=== PATIENT | male | born 1955 | race Caucasian/White ===

== ENCOUNTER 2016-12-09 06:09 | Day surgery (SDC) | payer OTHER ==
[~2016-12-09] VITALS: Ht 177.8 cm; Wt 122.0 kg
[~2016-12-09 06:09] MED LIST: AMLO-147 PO; INSULIN ASPART; LANT3I SC; LISI20TA11 PO
[2016-12-09 07:07] VITALS: Ht 177.8 cm; Wt 122.0 kg
[2016-12-09] MEDS ORDERED: HIV MED (07:21)
[2016-12-09] MEDS ORDERED: HYDR12.58 PO (07:21)
[2016-12-09] MEDS ORDERED: ATOR40TA68 PO (07:21)
[2016-12-09] MEDS ORDERED: PROPOFOL 20 ML ONE ×2 (07:40→08:23)
[2016-12-09 07:45] VITALS: BP 148/66; PULSE 62; RESP 14
[2016-12-09 08:55] VITALS: BP 145/54; PULSE 52; RESP 18
--- NOTE | 2016-12-09 09:06 | GILP ---
DATE OF PROCEDURE: NAME OF PROCEDURE: Colonoscopy. 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 POSTOPERATIVE DIAGNOSES: 1. Colonoscopy all the way to the cecum. 2. Internal hemorrhoids. 3. No rectal lesion was identified. INDICATION FOR THE PROCEDURE: Mr. Vikram Leonard is a 61-year-old male patient who had a colonoscopy and he was noted to have had rectal polyp. Biopsy revealed HPV cytopathic effect and focal high-gra de dysplasia, so the patient was scheduled for followup colonoscopy and repeat biopsy. The procedure and possible complications were well explained to the patient. He understood and cons ented to the procedure. DESCRIPTION OF PROCEDURE: Under the influence of anesthesia, the colonoscope was carefully introduc ed in the rectum and under direct vision it was advanced all the way to the cecum. FINDINGS: No rectal lesion was identified at this time. The patient was noted to have hemorrhoids. He tolerated the procedure very well and there was no complication from the procedure. At the end o f the procedure he was awake with stable vital signs and he was discharged home to the care of his [facility]. IMPRESSION: 1. Colonoscopy all the way to the cecum. 2. No rectal lesion was identified. 3. Internal and external hemorrhoids. PLAN: Consider referral to an infectious disease specialist for further evaluation of HPV infectio n. The patient will need repeat colonoscopy in 3 years. Dictated By: SANCHEZ DAVIS/LATONIA Conf#: [id number] DID#: [id number]
== END 2016-12-09 09:47 | disposition home or self-care (01) ==
LOC: GIL 06:09
PROVIDERS: ATTEND Internal Medicine Gastroenterology
DX: K64.8 Other hemorrhoids (principal); K64.4 Residual hemorrhoidal skin tags; Z86.010 Personal history of colon polyps; I10 Essential (primary) hypertension; E11.9 Type 2 diabetes mellitus without complications; E78.5 Hyperlipidemia, unspecified; E66.01 Morbid (severe) obesity due to excess calories; Z68.38 Body mass index [BMI] 38.0-38.9, adult
CPT/HCPCS: 45378; 82962; Z7610